=== PATIENT | female | born 1945 | race Asian ===

== ENCOUNTER 2018-04-26 08:59 | Inpatient (IN) | payer OTHER ==
[~2018-04-26] VITALS: Ht 162.6 cm; Wt 57.2 kg
[2018-04-26 09:07] VITALS: Ht 162.6 cm; Wt 57.2 kg
[2018-04-26] MEDS ORDERED: DIOVAN160 MG PO (09:20)
[2018-04-26] MEDS ORDERED: TENORMIN50 MG PO (09:20)
[2018-04-26] MEDS ORDERED: LOVASTATIN20 MG PO (09:21)
[2018-04-26 09:38] LABS: CARBON DIOXIDE 26.9 mmol/L (21-32); CHLORIDE SERUM 105 mmol/L (98-107); CREATININE SERUM 0.9 mg/dL (0.6-1.0); GLUCOSE SERUM 115 mg/dL (74-106); POTASSIUM SERUM 3.9 mmol/L (3.5-5.1); SODIUM SERUM 138 mmol/L (136-145)
[2018-04-26 09:42] LABS: ALBUMIN 3.4 g/dL (3.4-5.0); ALKALINE PHOSPHATASE 40 U/L (46-116); ALT/SGPT 34 U/L (14-59); AST/SGOT 35 U/L (15-37); BILIRUBIN TOTAL 0.43 mg/dL (0.20-1.00); TOTAL PROTEIN, SERUM 7.2 g/dL (6.4-8.2)
[2018-04-26 10:00] LABS: BASOPHIL % 0.7 % (0-2); PLATELET COUNT 137 x10^3mcL (130-400)
[2018-04-26 10:01] LABS: RED CELL DISTRIBUTION WIDTH 14.7 % (11.5-14.5)
[2018-04-26 10:03] LABS: rbc morphology (normal/abnorm) ABNORMAL (NORMAL)
[2018-04-26 12:58] LABS: CHOLESTEROL/HDL RATIO 2.8; MAGNESIUM 1.9 mg/dL (1.8-2.4); PHOSPHOROUS 3.5 mg/dL (2.5-4.9)
[2018-04-26 13:07] LABS: FREE T4 1.09 ng/dL (0.76-1.46); FREE THYROXINE INDEX 3.7 ug/dL (1.4-4.5); T4(THYROXINE) 10.2 ug/dL (4.7-13.3)
[2018-04-26 13:08] LABS: UA SPECIFIC GRAVITY <=1.005 (1.005-1.035); microscopic required? YES; urine erythrocyte 1+ (NEGATIVE)
[2018-04-26 13:13] VITALS: BP 134/61
[2018-04-26 13:35] LABS: AMPHETAMINE QUAL UR NONE DETECTED (See below)
[2018-04-26 13:45] LABS: T3 TOTAL 1.38 ng/mL
[2018-04-26 17:25] VITALS: BP 128/60
[2018-04-26 20:49] VITALS: BP 124/56
[2018-04-26 21:43] LABS: RED BLOOD CELLS 5.13 M/mm3 (4.10-5.10)
[2018-04-27 05:12] VITALS: BP 142/53
[2018-04-27 06:03] LABS: BASOPHIL % 0.6 % (0-2)
[2018-04-27 06:11] LABS: PLATELET COUNT 125 x10^3mcL (130-400); RED CELL DISTRIBUTION WIDTH 14.7 % (11.5-14.5)
[2018-04-27 06:55] LABS: CALCIUM 7.3 mg/dL (8.5-10.1); CARBON DIOXIDE 23.7 mmol/L (21-32); CHLORIDE SERUM 109 mmol/L (98-107); CREATININE SERUM 0.6 mg/dL (0.6-1.0); GLUCOSE SERUM 81 mg/dL (74-106); MAGNESIUM 1.9 mg/dL (1.8-2.4); PHOSPHOROUS 2.9 mg/dL (2.5-4.9); POTASSIUM SERUM 3.6 mmol/L (3.5-5.1); SODIUM SERUM 142 mmol/L (136-145)
[2018-04-27 09:43] VITALS: BP 127/55
[2018-04-27 14:40] VITALS: BP 122/48
== END 2018-04-27 15:50 | disposition home or self-care (01) | DRG 392 ==
LOC: ED 08:59 → DU 11:18
PROVIDERS: Family Medicine
DX: K21.9 Gastro-esophageal reflux disease without esophagitis (principal); D50.9 Iron deficiency anemia, unspecified; R73.03 Prediabetes; R31.9 Hematuria, unspecified; R76.0 Raised antibody titer; E78.00 Pure hypercholesterolemia, unspecified; Z68.21 Body mass index [BMI] 21.0-21.9, adult
CPT/HCPCS: 83880; 84439; J2060; J7030; Q0092